=== PATIENT | female | born 1990 | race Caucasian/White ===

== ENCOUNTER → 2016-03-19 | Outpatient (CLI) | payer OTHER ==
[2016-03-19 13:23] LABS: CH 32.7; CHCM 34.6; HCT 36.6 % (34.0-46.0); HDW 2.72; HGB 12.1 gm/dL (11.4-16.0); MCH 31.4 pg (25.0-35.0); MCV 95.1 fL (80.0-100.0); Mean Platelet Volume 7.7; RBC 3.85 m/uL (3.80-5.40); RDW 13.1 % (11.5-15.5); WBC 10.3 k/uL (3.8-10.6)
== END | disposition home or self-care (01) ==
LOC: LABWHC1 12:48
PROVIDERS: ATTEND Obstetrics & Gynecology
DX: Z34.92 Encounter for supervision of normal pregnancy, unspecified, second trimester (principal); Z3A.00 Weeks of gestation of pregnancy not specified
CPT/HCPCS: 36415; 82950; 85027

== ENCOUNTER → 2016-05-21 | Outpatient (CLI) | payer OTHER ==
--- NOTE | 2016-05-21 13:07 | US ---
EXAMINATION TYPE: US OB anatomy transabd DATE OF EXAM: 05/21/2016 10:42 AM COMPARISON: NONE HISTORY: 26-year-old female Large for dates 3rd Trimester [id number] 35 week anatomy scan TECHNIQUE: Transabdominal scanning EXAM MEASUREMENTS: GESTATIONAL AGE / DATING Physician Established: (35 weeks/2 days) EDC: 06/23/2016 Dates by LMP: unknown Dates by First Scan: [employer]ER Dates by Current Scan for: (36 weeks/0 days) EDC: 06/18/2016 SURVEY IUP: Single PLACENTA: Anterior PREVIA: No previa LILLY: 13.0 cm Normal CERVICAL LENGTH (transabdominal: norm > 3.0cm): 3.2 cm BIOMETRY PRESENTATION: Vertex LIE: Longitudinal BPD: 8.9 cm 36 weeks / 1 days HC: 32.0 cm 36 weeks / 1 days AC: 32.2 cm 36 weeks / 1 days FL: 6.9 cm 35 weeks / 3 days ESTIMATED WEIGHT IN GRAMS: 2802 grams ESTIMATED WEIGHT IN LBS/OZS: 6 lbs. 3 oz. WEIGHT PERCENTAGE BASED ON ESTABLISHED DATE: 67 % HC/AC: 0.9 Normal FL/AC: 21 Normal HEART RATE: 126 bpm RHYTHM: Normal ANATOMY SEEN (within normal limits): Four Chamber Heart Stomach Situs Nose / Lips Diaphragm Kidneys (bilateral) ANATOMY NOT SEEN OR SUBOPTIMALLY VISUALIZED:limited imaging due to maturity and crowding Lateral Vent Cisterna Magna (< 1.1 cm) Cerebellum (varies with age) cm Choroid Plexus (bilateral) Midline Falx Cavus Septi Pellucidi Longitudinal Spine Transverse Spine Arms (bilateral) Legs (bilateral) Cord Insert Outflow tracts: LVOT/RVOT Bladder Three Vessel Cord IMPRESSION: 1. Single live intrauterine with established gestational age of 35 weeks 2 days. Current ultrasound biometry is concordant (36 weeks 0 days) placing the child at the 67th percentile for weight. FIDED
== END | disposition home or self-care (01) ==
LOC: RADUSWWP 09:49
PROVIDERS: ATTEND Obstetrics & Gynecology
DX: O36.63X0 Maternal care for excessive fetal growth, third trimester, not applicable or unspecified (principal); Z3A.35 35 weeks gestation of pregnancy
CPT/HCPCS: 76805; 76811

== ENCOUNTER 2016-05-31 10:30 | Inpatient (IN) | payer OTHER ==
[2016-05-31] MEDS ORDERED: LACTATED RINGERS 1,000 ML IV SCH (11:00)
[2016-05-31] MEDS ORDERED: CITRIC ACID-SODIUM CITRATE 15 ML CUP PO ONE (11:00)
[2016-05-31] MEDS ORDERED: LACTATED RINGERS 1,000 ML IV ONE (11:00)
[2016-05-31 11:15] LABS: Basophils # (A) 0.1 k/uL (0-0.2); Basophils % (A) 1 %; CH 31.1; CHCM 33.8; Eosinophils # (A) 0.1 k/uL (0-0.7); Eosinophils % (A) 1 %; HDW 3.34; HGB 10.8 gm/dL (11.4-16.0); Luc # (Auto) 0.27; Luc % (Auto) 3; Lymphocytes # (A) 2.6 k/uL (1.0-4.8); Lymphocytes % (A) 26 %; MCH 30.2 pg (25.0-35.0); MCHC 32.8 g/dL (31.0-37.0); MCV 92.3 fL (80.0-100.0); Mean Platelet Volume 8.3; Monocytes # (A) 0.7 k/uL (0-1.0); Monocytes % (A) 6 %; Neutrophils # (A) 6.6 k/uL (1.3-7.7); Neutrophils % (A) 64 %; RBC 3.58 m/uL (3.80-5.40); RDW 13.5 % (11.5-15.5); WBC 10.3 k/uL (3.8-10.6); WBC (Perox) 10.29
[2016-05-31] MEDS ORDERED: ceFAZolin 2 GM in SODIUM CHLORIDE 0.9% 100 ML IVPB ONE (11:30)
[2016-05-31] MEDS ORDERED: MORPHINE SULFATE (PF) 0.3 MG/0.3 ML SYR ONE (11:31)
[2016-05-31] MEDS ORDERED: LACTATED RINGERS 1,000 ML BAG IV ONE (11:31)
[2016-05-31] MEDS ORDERED: NALBUPHINE 10 MG/ML AMPUL ONE (11:31)
[2016-05-31] MEDS ORDERED: OXYTOCIN 10 UNIT/ML 1 ML VIAL IM ONE (11:31)
[2016-05-31] MEDS ORDERED: MORPHINE SULFATE 4 MG/ML SYRINGE IVP PRN (12:00)
[2016-05-31] MEDS ORDERED: ONDANSETRON 4 MG/2 ML VIAL IVP PRN ×2 (12:00→12:18)
[2016-05-31] MEDS ORDERED: diphenhydrAMINE 50 MG/ML 1 ML VIAL IVP PRN ×2 (12:00→12:18)
[2016-05-31] MEDS ORDERED: NALOXONE 0.4 MG/ML 1 ML VIAL IV PRN ×2 (12:00→12:18)
[2016-05-31] MEDS ORDERED: diphenhydrAMINE 25 MG CAP PO PRN (12:18)
[2016-05-31] MEDS ORDERED: ZOLPIDEM 5 MG TAB PO PRN (12:18)
[2016-05-31] MEDS ORDERED: ACETAMINOPHEN TAB 325 MG TAB PO PRN (12:18)
[2016-05-31] MEDS ORDERED: Acetaminophen-Codeine 300-30mg TAB PO PRN (12:18)
[2016-05-31] MEDS ORDERED: SIMETHICONE 80 MG CHEWABLE PO PRN (12:18)
[2016-05-31] MEDS ORDERED: METOCLOPRAMIDE 5 MG/ML 2 ML VIAL IVP PRN (12:18)
--- NOTE | 2016-05-31 12:30 | P.HPOB ---
History of Present Illness H&P Date: 05/31/16 Chief Complaint: Leaking of fluid and contractions This patient is a pleasant 26-year-old 2 para 1 female estimated date of confinement 06/25/2016 estimated gestational age 36-3/7 weeks who presents to labor and delivery with complaints of gush of fluid at 5:30 this morning and now having regular contractions. Patient has had a previous section for breech as requested repeat section this . Patient also was requesting permanent sterilization. care is per Dr. Moore and appears to be uncomplicated. Review of Systems Constitutional: Denies chills, Denies fever Eyes: denies blurred vision, denies pain Ears, nose, mouth and throat: Denies headache, Denies sore throat Cardiovascular: Denies chest pain, Denies shortness of breath Respiratory: Denies cough Gastrointestinal: Reports heartburn Genitourinary: Reports Menstruation: Reports amenorrhea Integumentary: Denies pruritus, Denies rash Neurological: Denies numbness, Denies weakness Past Medical History Past Medical History: No Reported History History of Any Multi-Drug Resistant Organisms: None Reported Past Surgical History: Section Past Psychological History: No Psychological Hx Reported Smoking Status: Current every day smoker Past Alcohol Use History: None Reported Past Drug Use History: None Reported Medications and Allergies Home Medications Medication Instructions Recorded Confirmed Type Acetaminophen [Tylenol] 325 mg PO Q4H PRN 05/31/16 05/31/16 History diphenhydrAMINE [Benadryl] 25 mg PO BID PRN 05/31/16 05/31/16 History Allergies Allergy/AdvReac Type Severity Reaction Status Date / Time No Known Allergies Allergy Verified 05/31/16 10:31 Exam - Vital Signs Vital signs: Vital Signs Temp Pulse Resp BP Pulse Ox 05/31/16 10:33 97.2 F L 99 16 147/79 97 Intake and Output 05/30/16 05/31/16 05/31/16 22:59 06:59 14:59 Other: Weight 91.172 kg Patient Weight 06/01/16 06:59 Weight 91.172 kg - OBG Physical Exam Abdomen: bowel sounds normal, no diffuse tenderness, no bruit present, no guarding noted, no hepatomegaly, no splenomegaly, no mass Vulva: both: normal Vagina: normal moisture, no discharge Cervix: no lesion (Patient's cervix is 3-4 cm dilated per the RN. She is gross rupture membranes), no discharge Uterus: enlarged (Fundal height is consistent with a term .) Results blood work shows she is A positive, rubella nonimmune, RPR is nonreactive, HIV was nonreactive, hepatitis B was negative, Glucola was normal, toxoplasmosis was negative, normal. Result Diagrams: 05/31/16 11:00 Abnormal Lab Results - Last 24 Hours (Table) 05/31/16 Range/Units 11:00 RBC 3.58 L (3.80-5.40) m/uL Hgb 10.8 L (11.4-16.0) gm/dL Hct 33.0 L (34.0-46.0) % Assessment and Plan (1) Third trimester Narrative/Plan: This is a pleasant 26-year-old 2 para 1 female 36-3/7 weeks gestation with rupture membranes in active labor. Patient has had a previous section and desires repeat and she also requesting permanent sterilization. I did reinforce with the patient that a tubal ligation is considered permanent although there is a failure rate of approximately 20-25 per thousand procedures done and if she did become a 50% chance of a tubal or an ectopic . Patient also understands risks of injury including risks of infection, bleeding, possible injury bowel, bladder, vessels , and/or other organs. All the patient's questions are answered and written consent is obtained. Plan is repeat section and bilateral partial salpingectomy. Status: Acute (2) Previous delivery affecting Status: Acute (3) premature rupture of membranes Status: Acute (4) Family planning Status: Acute
--- NOTE | 2016-05-31 12:37 | P.OP ---
Date of Procedure: 05/31/16 Preoperative Diagnosis: #1: 36-3/7 week . #2: Premature rupture membranes. #3: Labor #4: Previous section desires repeat #5: Desires permanent sterilization Postoperative Diagnosis: Same Procedure(s) Performed: #1: Repeat low transverse section. #2: Bilateral partial salpingectomy. Anesthesia: spinal Surgeon: Mauro Castelan Teacher Education Director #1: Jerri Jim Estimated Blood Loss (ml): 800 Pathology: other (Placenta and bilateral fallopian tube segments.) Condition: stable Disposition: floor Indications for Procedure: Please see dictated H&P for intimate details of this patient's admission. Brief summary is a pleasant 26-year-old 2 para 1 female 36-3/7 weeks gestation admitted to labor and delivery with spontaneous rupture membranes at 5 :30 this morning and onset of labor thereafter. Patient's had a previous section as requested repeat and also requesting permanent sterilization. I discussed with the patient the tubal ligation and the fact that it is permanent, however there is a failure rate of approximately 20-25 per thousand procedures done. She also understands risk of surgery including risks of infection, bleeding, possible injury bowel, bladder, vessels, and other organs. She understands risk of DVT and pulmonary embolism. All the patient's questions are answered and a written consent is obtained. Operative Findings: As a vigorous viable male infant Apgars were 9 and 9 and delivery time is 1147 hrs. Description of Procedure: This patient has a Quesada catheter placed to straight drain. She is subsequent taken to the operating room where she sat up and spinal anesthetic is administered without incident. With an adequate level of anesthesia she has abdominal prep and drape. Scalpels and taken the previous Pfannenstiel incision is incised. A second scalpel is then taken down the fascia and it is scored with a scalpel. Fascial incision extended bilaterally using the Brenner scissors. Fascia is dissected off the rectus muscles sharply. Rectus muscles are the peritoneum identified and entered sharply. Peritoneal incision extended superior and inferior without difficulty. Bladder late is then placed in the bladder peritoneum was dissected off the lower uterine segment sharply with the Metzenbaum scissors. At this point I take a scalpel and a low transverse uterine incision is then made. Using a hemostat I into the uterine cavity is loss of clear fluid. Infant's head is then guided through the incision with fundal pressure delivered. Mouth and nares are bulb suctioned. There is a nuchal cord which is reduced. Then have delivery anterior shoulder and posterior shoulder and rest this 's body. This is a vigorous viable male infant Apgars are 9 and 9 delivery time was 1147 hrs. Infant has spontaneous respirations and good cry and grossly appears normal. After delivery of the infant the umbilical cord is doubly clamped and cut appears to be trivascular. Placenta is manually extracted intact. Uterus is then externalized and uterine incision demarcated with Rodríguez clamps. Uterine incision is closed using 0 Vicryl in 2 layers. Good hemostasis is noted. Bladder peritoneum was then reapproximated using a 3-0 Vicryl again good reapproximation is noted. With this done I turned my attention left fallopian tube approximately 4 cm from its cornual insertion I make a small window through the mesial salpinx with Bovie cautery. Using a 2-0 silk I doubly ligate a 2 cm segment of the tube. This is then excised and handed off to pathology. The end of the tube was then cauterized. Excellent hemostasis is noted. Turned my attention to the right fallopian tube and using a similar technique similar results a segment of the right fallopian tube is handed off. With this done and good hemostasis assured excess fluid is removed from the abdomen and pelvis. Uterus placed back into the abdomen. Parietal peritoneum was then closed in 0 Vicryl running fashion. Rectus muscles reapproximated in 0 Vicryl interrupted fashion. Fascia is then closed using 0 PDS in a running fashion. Fascial incision is intact and hemostatic. Subcutaneous tissues and closed using a 3-0 Vicryl. Skin is and closed using david. All counts are correct 3 there are no complications. Patient is taken to the birthing suite in satisfactory condition.
[2016-05-31] MEDS ORDERED: MEASLES-MUMPS-RUBELLA VACC/PF 12,500 UNIT/0.5 ML VIAL SQ ONE (12:38)
[2016-05-31] MEDS: KETOROLAC 30 MG/ML 1 ML VIAL IVP PRN ×2 (12:42→20:29)
[2016-05-31 13:01] VITALS: BMI 33.4
[2016-05-31] MEDS: LACTATED RINGERS 1,000 ML IV SCH ×2 (13:06→16:22)
[2016-05-31] MEDS: MORPHINE SULFATE 4 MG/ML SYRINGE IVP PRN (14:14)
[2016-05-31] MEDS: SENNOSIDES-DOCUSATE SODIUM 1 EACH TAB PO SCH (20:28)
[2016-06-01] MEDS: MORPHINE SULFATE 4 MG/ML SYRINGE IVP PRN (01:13)
[2016-06-01] MEDS: KETOROLAC 30 MG/ML 1 ML VIAL IVP PRN ×3 (04:32→16:24)
--- NOTE | 2016-06-01 07:44 | P.PNOBGPC ---
Subjective - Subjective Patient reports: Reports appetite normal, Reports voiding normally, Reports pain well controlled, Reports ambulating normally : doing well Objective - Vital Signs Latest vital signs: Vital Signs Temp Pulse Resp BP Pulse Ox 06/01/16 04:22 98.2 F 83 13 124/78 06/01/16 01:00 98.6 F 85 16 124/77 05/31/16 20:40 98.6 F 79 16 143/92 05/31/16 16:00 97.5 F L 65 16 129/75 05/31/16 14:15 96.6 F L 64 18 147/90 97 05/31/16 13:45 59 L 16 129/81 98 05/31/16 13:15 97.0 F L 61 16 136/89 99 05/31/16 13:00 60 133/87 05/31/16 12:45 96.1 F L 60 18 129/91 97 05/31/16 12:30 96.4 F L 75 18 127/61 98 05/31/16 12:15 97.0 F L 76 16 129/60 99 05/31/16 10:33 97.2 F L 99 16 147/79 97 Intake and Output 05/31/16 06/01/16 06/01/16 22:59 06:59 14:59 Intake Total 1000 Output Total 300 300 Balance -300 700 Intake: IV 1000 Lactated Ringers 1,000 ml 1000 @ 125 mls/hr IV .Q8H [facility] Rx#:[id number] Output: Urine 300 300 Uretheral (Quesada) 300 Other: # Voids 1 - Exam Lungs: bilateral: normal Chest: Normal S1, Normal S2 Extremities: Present: normal Abdomen: Present: normal appearance, soft. Absent: distention, tenderness Incision: Present: normal, dry, intact Uterus: Present: normal, firm - Labs Labs: Abnormal Lab Results - Last 24 Hours (Table) 05/31/16 Range/Units 11:00 RBC 3.58 L (3.80-5.40) m/uL Hgb 10.8 L (11.4-16.0) gm/dL Hct 33.0 L (34.0-46.0) % Assessment and Plan (1) Third trimester Narrative/Plan: Postoperative day #1. Patient is resting without complaints. Vital signs are stable she's afebrile. Uterus is firm nontender, and her incision is intact and dry. CBC is pending at time of this dictation. My impression is a normal course. Plan is to continue routine postoperative care, encourage ambulation, allow the patient to shower, and check a CBC today Current Visit: Yes Status: Acute Code(s): Z33.1 - STATE, INCIDENTAL SNOMED Code(s): 02622047 (2) Previous delivery affecting Current Visit: Yes Status: Acute Code(s): O34.219 - MATERNAL CARE FOR UNSP TYPE SCAR FROM PREVIOUS DEL SNOMED Code(s): 043548196 (3) premature rupture of membranes Current Visit: Yes Status: Acute Code(s): O42.919 - PRETRM AKSHAT ROM, UNSP TIME BETW RUPT AND ONST LABR, UNSP TRI SNOMED Code(s): 892341303 (4) Family planning Current Visit: Yes Status: Acute Code(s): Z30.09 - ENCOUNTER FOR OTH GENERAL CNSL AND ADVICE ON CONTRACEPTION SNOMED Code(s): 54191056
[2016-06-01] MEDS: SENNOSIDES-DOCUSATE SODIUM 1 EACH TAB PO SCH ×2 (07:58→21:45)
[2016-06-01] MEDS: Acetaminophen-Codeine 300-30mg TAB PO PRN ×3 (07:58→21:30)
[2016-06-01 08:20] LABS: Basophils % (A) 0 %; CH 30.8; Eosinophils # (A) 0.1 k/uL (0-0.7); Eosinophils % (A) 1 %; HCT 27.5 % (34.0-46.0); HDW 3.22; Hypochromasia Slight; Luc # (Auto) 0.27; Luc % (Auto) 3; Lymphocytes # (A) 2.3 k/uL (1.0-4.8); Lymphocytes % (A) 25 %; MCH 30.6 pg (25.0-35.0); MCHC 32.7 g/dL (31.0-37.0); MCV 93.7 fL (80.0-100.0); Mean Platelet Volume 8.4; Monocytes # (A) 0.5 k/uL (0-1.0); Monocytes % (A) 5 %; Neutrophils # (A) 6.1 k/uL (1.3-7.7); Neutrophils % (A) 65 %; RBC 2.93 m/uL (3.80-5.40); RDW 13.6 % (11.5-15.5); WBC 9.3 k/uL (3.8-10.6); WBC (Perox) 9.29
--- NOTE | 2016-06-01 14:26 | P.PN ---
Progress Note - Text Date: 06/01/2016 Time: 1356 The patient is status post section Vital signs stable VAS:0-10 Patient has no complaints of pain. The patient incurred some minimal itching yesterday, this itching is now subsiding. Pain meds to be managed by service.
[2016-06-01] MEDS: LACTATED RINGERS 1,000 ML IV SCH (20:54)
[2016-06-01] MEDS: IBUPROFEN 600 MG TAB PO PRN (23:12)
[2016-06-02] MEDS: Acetaminophen-Codeine 300-30mg TAB PO PRN ×2 (05:05→10:02)
[2016-06-02] MEDS: LACTATED RINGERS 1,000 ML IV SCH (05:06)
[2016-06-02] MEDS: IBUPROFEN 600 MG TAB PO PRN (07:29)
[2016-06-02] MEDS: SENNOSIDES-DOCUSATE SODIUM 1 EACH TAB PO SCH (07:30)
[2016-06-02 08:40] VITALS: BP 132/83; PULSE 79; RESP 14; TEMP 97.9
--- NOTE | 2016-06-02 09:09 | P.DS ---
Providers Date of admission: 05/31/16 10:59 Expected date of discharge: 06/02/16 Attending physician: Mauro Mackey [facility] Course: This is a 26-year-old female 2 para 1 at 36-3/7 weeks who presented with rupture of membranes. She underwent a repeat low transverse section with bilateral partial salpingectomy on 05/31/2016. Her postoperative course has been essentially uncomplicated. She is a little sore but has been behind on her pain medication yesterday. She would like to go home today. She is passing flatus and a small bowel movement. Lochia is decreasing. She is bottle feeding. Vital signs are stable. Abdomen is soft with positive bowel sounds 4. Incision is clean dry and intact. Extremities show negative Homans. Impression is status post repeat section with bilateral partial salpingectomy postoperative day #2. Plan is to discharge home today. Routine postoperative and instructions are given. She will be given prescriptions for ibuprofen and Tylenol 3. Stevie will be removed and Steri- Strips placed prior to discharge. She is advised to follow up in the office in approximately 1 week for a postoperative check and in 6 weeks for check. She is advised to call the office if she has any further questions or concerns prior to her appointment times. Procedures: Repeat low transverse section with bilateral partial salpingectomy on 05/31/2016 Patient Condition at Discharge: Stable Plan - Discharge Summary New Discharge Prescriptions: Acetaminophen-Codeine 300-30mg [Tylenol w/codeine #3] 1 each PO Q4HR PRN #30 tab PRN Reason: Mild Pain Ibuprofen [Motrin] 600 mg PO Q6HR PRN #60 tab PRN Reason: Mild Pain Or Fever >= 100.5 Discharge Medication List Acetaminophen [Tylenol] 325 mg PO Q4H PRN 05/31/16 [History] diphenhydrAMINE [Benadryl] 25 mg PO BID PRN 05/31/16 [History] Acetaminophen-Codeine 300-30mg [Tylenol w/codeine #3] 1 each PO Q4HR PRN #30 tab 06/02/16 [Rx] Ibuprofen [Motrin] 600 mg PO Q6HR PRN #60 tab 06/02/16 [Rx] Follow up Appointment(s)/Referral(s): Audrey Moore DO [Doctor of Osteopathic Medicine] - 1 Week (Postoperative check in 1 week check in 6 weeks) Activity/Diet/Wound Care/Special Instructions: Instructions 1. Do not begin any exercise program for 3 weeks. 2. Do not resume sexual relations for 3 weeks or longer if uncomfortable. 3. You may take tub baths or showers at any time. 4. You may use tampons if desired after 3 weeks. 5. Keep the area of episiotomy (stitches) clean and dry. 6. If you are not nursing, wear a good fitting, supportive bra during the day and limit fluid intake for at least 1 week to prevent breast engorgement. 7. Call the office, [phone], within the next week to make appointment for your 6 week checkup if it has not already been made. 8. Report any of the following occurrences to the doctor promptly: a. Heavy, excessive bleeding b. Chills, fever c. Burning or frequency of urination d. Pain or redness and breasts if nursing e. Increasing pain or swelling in episiotomy (stitches). In addition to the above instructions, the following additional should be followed: 1. No heavy lifting or straining (exercising) until after 6 week checkup. 2. Keep abdominal incision clean and dry: You may wear a dressing if more comfortable. 3. Make office appointment for 10 days after going home or as instructed by her doctor. Discharge Disposition: HOME SELF-CARE
== END 2016-06-02 12:00 | disposition home or self-care (01) | DRG 766 ==
LOC: FBPOP 10:30 → 4FBP 10:59
PROVIDERS: ADMIT Obstetrics & Gynecology; ATTEND Obstetrics & Gynecology
PROC: 0UB70ZZ Excision of Bilateral Fallopian Tubes, Open Approach (ICD-10-PCS; 2016-05-31)
PROC: 3E0134Z Introduction of Serum, Toxoid and Vaccine into Subcutaneous Tissue, Percutaneous Approach (ICD-10-PCS; 2016-05-31)
PROC: 10D00Z1 Extraction of Products of Conception, Low, Open Approach (ICD-10-PCS; principal; 2016-05-31 11:47)
DX: O42.913 Preterm premature rupture of membranes, unspecified as to length of time between rupture and onset of labor, third trimester (principal); F17.200 Nicotine dependence, unspecified, uncomplicated; O34.211 Maternal care for low transverse scar from previous cesarean delivery; O99.334 Smoking (tobacco) complicating childbirth; Z30.2 Encounter for sterilization; Z37.0 Single live birth; Z23 Encounter for immunization; Z3A.36 36 weeks gestation of pregnancy
CPT/HCPCS: 59025; 84112; 85025; 86850; 86900; 86901; 88302; 88307; 90707; 99213